=== PATIENT | female | born 1950 | race Caucasian/White ===

== ENCOUNTER → 2017-10-31 | Outpatient (CLI) | payer MEDICARE, OTHER | LOC: M.RAD 11:07 | DX: Z12.31 Encounter for screening mammogram for malignant neoplasm of breast (principal) ==

== ENCOUNTER → 2018-08-29 | Outpatient (CLI) | payer MEDICARE, OTHER | LOC: M.MRI 08-20 15:37 → M.LAB 07:17 → M.MRI 08:30 | DX: I65.23 Occlusion and stenosis of bilateral carotid arteries (principal); H53.123 Transient visual loss, bilateral ==

== ENCOUNTER → 2018-10-29 | Outpatient (CLI) | payer MEDICARE, OTHER | LOC: M.RAD 08:30 | DX: Z12.31 Encounter for screening mammogram for malignant neoplasm of breast (principal) ==

== ENCOUNTER → 2019-11-05 | Outpatient (CLI) | payer MEDICARE, OTHER | LOC: M.RAD 07:46 | PROVIDERS: ATTEND Internal Medicine | DX: Z12.31 Encounter for screening mammogram for malignant neoplasm of breast (principal) ==

== ENCOUNTER → 2020-08-02 | Outpatient (CLI) | payer MEDICARE, OTHER | LOC: M.MRI 12:57 | PROVIDERS: ATTEND Nurse Practitioner Gerontology | DX: S46.012A Strain of muscle(s) and tendon(s) of the rotator cuff of left shoulder, initial encounter (principal); X58.XXXA Exposure to other specified factors, initial encounter; Y93.89 Activity, other specified; Y92.89 Other specified places as the place of occurrence of the external cause; Y99.8 Other external cause status ==

== ENCOUNTER 2020-11-06 20:18 | Emergency (ER) | payer MEDICARE, OTHER ==
[~2020-11-06] VITALS: Ht 157.5 cm; Wt 67.1 kg
[2020-11-06] MEDS ORDERED: CHILDREN'S ASPI81 M1 PO (20:31)
[2020-11-06] MEDS ORDERED: LIPITOR10 MG PO (20:31)
[2020-11-06] MEDS ORDERED: ZINC50 M1 PO (20:32)
[2020-11-06] MEDS ORDERED: MELATONIN10 M2 PO (20:33)
[2020-11-06] MEDS ORDERED: SAW PALMETTO500 MG PO (20:33)
[2020-11-06] MEDS ORDERED: VITAMIN C100 MG PO (20:34)
[2020-11-06] MEDS ORDERED: CALCIUM500 MG PO (20:34)
[2020-11-06] MEDS ORDERED: VITAMIN B12-FO1 EAC1 PO (20:34)
[2020-11-06] MEDS ORDERED: VITAMIN E1000 UNIT PO (20:34)
[2020-11-06] MEDS ORDERED: VITAMIN D310 MC2 PO (20:34)
[2020-11-06] MEDS ORDERED: GLUCOSAMINE1000 MG PO (20:35)
[2020-11-06] MEDS ORDERED: POTASSIUM20 PO (20:35)
[2020-11-06 22:47] VITALS: BP 159/74
== END 2020-11-06 22:48 | disposition home or self-care (01) ==
LOC: M.ERS 20:18
DX: X50.1XXA Overexertion from prolonged static or awkward postures, initial encounter (principal); Y93.89 Activity, other specified; Y92.89 Other specified places as the place of occurrence of the external cause; Y99.8 Other external cause status

== ENCOUNTER → 2020-11-08 | Outpatient (CLI) | payer MEDICARE, OTHER ==
[~2020-11-08] MED LIST: CALCIUM500 MG PO; CHILDREN'S ASPI81 M1 PO; GLUCOSAMINE1000 MG PO; LIPITOR10 MG PO; MELATONIN10 M2 PO; POTASSIUM20 PO; SAW PALMETTO500 MG PO; VITAMIN B12-FO1 EAC1 PO; VITAMIN C100 MG PO; VITAMIN D310 MC2 PO; VITAMIN E1000 UNIT PO; ZINC50 M1 PO
== END ==
LOC: M.RAD 11-04 11:00
PROVIDERS: ATTEND Internal Medicine
DX: Z12.31 Encounter for screening mammogram for malignant neoplasm of breast (principal); N64.89 Other specified disorders of breast